=== PATIENT | female | born 1960 | race Caucasian/White ===

== ENCOUNTER → 2016-11-03 | Outpatient (CLI) | payer BC ==
--- NOTE | 2016-11-03 10:40 | REPMRS ---
Patient History The patient states she had a clinical breast exam in 10/2016. Patient is postmenopausal. No known family history of cancer. Digital Woman Screen Mammo: November 03, 2016 - Exam #: [id number] Bilateral CC and MLO view(s) were taken. Technologist: Alina Hudson, Technologist No prior studies available for comparison. FINDINGS: There are scattered fibroglandular densities. The patient states that there are no palpable abnormalities or other breast complaints. There is moderately dense fibroglandular tissue which is fairly symmetric. There is no dominant mass, areas of architectural distortion, or clustered microcalcification typical of malignancy. Benign calcifications are incidently identified. ASSESSMENT: BI-RADS/ACR category 2 mammogram. Benign finding(s). Recommendation Routine screening mammogram in 1 year (for women over age 40). This mammogram was interpreted with the aid of an FDA-approved computer-aided dectection system. A. Negative x-ray reports should not delay biopsy if a dominant or clinically suspicious mass is present. B. Not all cancers are identified by mammography. C. Adenosis and dense breast may obscure an underlying neoplasm. Electronically Signed By: Nicanor El M.D. 11/03/16 [id number]
== END ==
LOC: M WHC 09:23
PROVIDERS: ATTEND Nurse Practitioner Family
DX: Z12.31 Encounter for screening mammogram for malignant neoplasm of breast (principal)

== ENCOUNTER → 2016-11-03 | Outpatient (REF) | payer BC | LOC: M SFHCWAGY 11:59 | PROVIDERS: ATTEND Nurse Practitioner Family | DX: Z12.12 Encounter for screening for malignant neoplasm of rectum (principal); Z12.4 Encounter for screening for malignant neoplasm of cervix ==

== ENCOUNTER → 2017-07-20 | Outpatient (CLI) | payer BC | LOC: M ADAMS 15:12 | DX: M19.011 Primary osteoarthritis, right shoulder (principal); M19.012 Primary osteoarthritis, left shoulder; M85.88 Other specified disorders of bone density and structure, other site; M51.37 Other intervertebral disc degeneration, lumbosacral region; M54.41 Lumbago with sciatica, right side | CPT/HCPCS: 72100 ==

== ENCOUNTER → 2017-07-21 | Outpatient (REF) | payer BC ==
[2017-07-21 12:56] LABS: BASO % 0.3 % (0.0-1.0); EOS # 0.2 10^3/uL (0.0-0.50); HEMATOCRIT 39.5 % (36.0-47.0); HEMOGLOBIN 12.8 g/dl (12.0-15.5); IMMATURE GRANULOCYTE % 0.3 % (0-3.0); LYMPH # 1.6 10^3/uL (1.5-4.5); LYMPH % 21.2 % (24.0-44.0); MEAN CORPUSCULAR HEMOGLOBIN 30.2 pg (27.0-33.0); MEAN CORPUSCULAR HGB CONC 32.4 g/dl (32.0-36.5); MEAN CORPUSCULAR VOLUME 93.2 fl (80.0-96.0); MONO # 0.6 10^3/uL (0.0-0.8); MONO % 7.3 % (0.0-5.0); NEUTROPHILS # 5.2 10^3/uL (1.8-7.7); NEUTROPHILS % 68.9 % (36.0-66.0); PLATELET COUNT, AUTOMATED 292 10^3/uL (150-450); RED BLOOD COUNT 4.24 10^6/uL (4.00-5.40); RED CELL DISTRIBUTION WIDTH 12.2 % (11.5-14.5); WHITE BLOOD COUNT 7.6 10^3/uL (4.0-10.0)
[2017-07-21 13:21] LABS: TOTAL 25(OH) VITAMIN D 25.3 NG/ML (30.0-100.0)
[2017-07-21 13:34] LABS: ALBUMIN 3.9 GM/DL (3.2-5.2); ALBUMIN/GLOBULIN RATIO 1.05 (1.00-1.93); ALKALINE PHOSPHATASE 98 U/L (45-117); ALT/SGPT 12 U/L (12-78); ANION GAP 9 MEQ/L (8-16); AST/SGOT 15 U/L (7-37); BILIRUBIN,TOTAL 0.4 MG/DL (0.2-1.0); BLOOD UREA NITROGEN 11 MG/DL (7-18); CALCIUM LEVEL 9.1 MG/DL (8.5-10.1); CARBON DIOXIDE LEVEL 25 MEQ/L (21-32); CHLORIDE LEVEL 108 MEQ/L (98-107); CHOLESTEROL LEVEL 132 MG/DL (<200); CREATININE FOR GFR 0.57 MG/DL (0.55-1.30); FREE T4 1.17 NG/DL (0.76-1.46); GLOMERULAR FILTRATION RATE > 60.0 (>51); GLUCOSE, FASTING 75 MG/DL (70-100); HDL CHOLESTEROL 53 MG/DL (>40); LDL CHOLESTEROL 57.2 MG/DL (<100); NON-HDL-C 79 MG/DL; POTASSIUM SERUM 4.3 MEQ/L (3.5-5.1); RHEUMATOID FACTOR QUANT < 10.0 IU/ML (<15.0); SODIUM LEVEL 142 MEQ/L (136-145); TOTAL PROTEIN 7.6 GM/DL (6.4-8.2); TRIGLYCERIDES LEVEL 109 MG/DL (<150)
[2017-07-21 14:04] LABS: ERYTHROCYTE SEDIMENTATION RATE 22 mm/hr (0-30)
[2017-07-21 15:11] LABS: HIV 1&2 SCREEN CENTAUR NEGATIVE (NEGATIVE)
[2017-07-23 00:07] LABS: ANA (HEP2) Negative (.); Lyme Disease IgG/IgM Antibodie <0.91 ISR (0.00-0.90); Lyme Disease IgM Ab Quantitati <0.80 index (0.00-0.79)
== END ==
LOC: M SFHCADAM 08:06
DX: M25.512 Pain in left shoulder (principal); R03.0 Elevated blood-pressure reading, without diagnosis of hypertension; M54.42 Lumbago with sciatica, left side; M54.41 Lumbago with sciatica, right side; M25.511 Pain in right shoulder; Z11.4 Encounter for screening for human immunodeficiency virus [HIV]
CPT/HCPCS: 84443

== ENCOUNTER → 2017-11-04 | Outpatient (CLI) | payer BC | LOC: M WHC 09:42 | DX: Z12.31 Encounter for screening mammogram for malignant neoplasm of breast (principal); Z78.0 Asymptomatic menopausal state; M85.851 Other specified disorders of bone density and structure, right thigh; M85.852 Other specified disorders of bone density and structure, left thigh; M85.88 Other specified disorders of bone density and structure, other site | CPT/HCPCS: 77067 ==

== ENCOUNTER → 2017-11-04 | Outpatient (REF) | payer BC ==
[2017-11-06 14:16] LABS: HPV HYBRID CAPTURE II Negative (Negative)
== END ==
LOC: M SFHCWAGY 09:50
DX: Z12.4 Encounter for screening for malignant neoplasm of cervix (principal)
CPT/HCPCS: G0123

== ENCOUNTER 2017-11-05 07:30 | Day surgery (SDC) | payer BC ==
[2017-11-05] MEDS ORDERED: LIDOCAINE 2% INJ 100 MG/5 ML SDV (FOR ANES.) As Ordered (08:14)
[2017-11-05] MEDS ORDERED: PROPOFOL 200 MG/20 ML VIAL As Ordered (08:14)
[2017-11-05] MEDS: NS 1,000 ML IV (08:39)
== END 2017-11-05 09:48 | disposition home or self-care (01) ==
LOC: M OPP 07:30
DX: Z12.11 Encounter for screening for malignant neoplasm of colon (principal); D12.2 Benign neoplasm of ascending colon; K57.30 Diverticulosis of large intestine without perforation or abscess without bleeding; K64.8 Other hemorrhoids; M19.90 Unspecified osteoarthritis, unspecified site; M54.89 Other dorsalgia; M25.519 Pain in unspecified shoulder; F17.210 Nicotine dependence, cigarettes, uncomplicated; Z79.899 Other long term (current) drug therapy
CPT/HCPCS: 45385

== ENCOUNTER → 2018-06-10 | Outpatient (CLI) | payer BC ==
[~2018-06-10] MED LIST: CALC600T60 PO; MELO15TA28 PO; MULTCAP PO; VITA100066 PO; [UNRECOGNIZED DRUG - CODE] PO
--- NOTE | 2018-06-10 16:20 | REP ---
AP LATERAL RIGHT HIP, TWO VIEWS: HISTORY: Hip pain. There is no acute fracture or dislocation. The joint space is normal in appearance. IMPRESSION: There is no acute fracture or dislocation. Electronically Signed by Roberto Blunt MD 06/10/2018 04:26 P
== END ==
LOC: M ADAMS 13:40
PROVIDERS: ATTEND Physician Assistant Medical
DX: M25.551 Pain in right hip (principal)

== ENCOUNTER → 2018-09-28 | Outpatient (REF) | payer BC ==
[2018-09-28 12:21] LABS: BASO % 0.4 % (0.0-1.0); EOS # 0.2 10^3/uL (0.0-0.50); EOS % 2.2 % (0.0-3.0); HEMATOCRIT 38.2 % (36.0-47.0); HEMOGLOBIN 13.2 g/dl (12.0-15.5); LYMPH # 1.6 10^3/uL (1.5-4.5); LYMPH % 21.6 % (24.0-44.0); MEAN CORPUSCULAR HEMOGLOBIN 32.4 pg (27.0-33.0); MEAN CORPUSCULAR HGB CONC 34.6 g/dl (32.0-36.5); MEAN CORPUSCULAR VOLUME 93.9 fl (80.0-96.0); MONO # 0.6 10^3/uL (0.0-0.8); MONO % 8.2 % (0.0-5.0); NEUTROPHILS # 4.9 10^3/uL (1.8-7.7); NEUTROPHILS % 67.2 % (36.0-66.0); PLATELET COUNT, AUTOMATED 298 10^3/uL (150-450); RED BLOOD COUNT 4.07 10^6/uL (4.00-5.40); WHITE BLOOD COUNT 7.3 10^3/uL (4.0-10.0)
[2018-09-28 12:36] LABS: ALBUMIN 3.9 GM/DL (3.2-5.2); ALT/SGPT 15 U/L (12-78); BILIRUBIN,TOTAL 0.4 MG/DL (0.2-1.0); BLOOD UREA NITROGEN 25 MG/DL (7-18); CALCIUM LEVEL 10.1 MG/DL (8.5-10.1); CARBON DIOXIDE LEVEL 30 MEQ/L (21-32); CHLORIDE LEVEL 100 MEQ/L (98-107); CHOLESTEROL LEVEL 138 MG/DL (<200); CHOLESTEROL RISK RATIO 2.464 (<5); CREATININE FOR GFR 0.85 MG/DL (0.55-1.30); GLOMERULAR FILTRATION RATE > 60.0 (>51); GLUCOSE, FASTING 78 MG/DL (70-100); HDL CHOLESTEROL 56 MG/DL (>40); LDL CHOLESTEROL 57 MG/DL (<100); NON-HDL-C 82 MG/DL; POTASSIUM SERUM 3.7 MEQ/L (3.5-5.1); SODIUM LEVEL 137 MEQ/L (136-145); TOTAL PROTEIN 7.2 GM/DL (6.4-8.2); TRIGLYCERIDES LEVEL 123 MG/DL (<150)
== END ==
LOC: M SFHCADAM 08:18
PROVIDERS: ATTEND Physician Assistant Medical
DX: I10 Essential (primary) hypertension (principal); F17.210 Nicotine dependence, cigarettes, uncomplicated

== ENCOUNTER → 2018-12-07 | Outpatient (CLI) | payer BC ==
--- NOTE | 2018-12-07 13:18 | REPMRS ---
Patient History The patient states she had a clinical breast exam in 11/2018. Patient is postmenopausal. No known family history of cancer. No Hormone Replacement Therapy 3D TOMOSYNTHESIS WAS PERFORMED. The [facility] lifetime risk for breast cancer is 5.9%. Digital Woman Screen Mammo: December 07, 2018 - Exam #: [id number] Bilateral CC and MLO view(s) were taken. Technologist: Alina Hudson, Technologist Prior study comparison: November 04, 2017, bilateral digital woman screen mammo performed at [facility]. November 03, 2016, digital woman screen mammo performed at [facility]. FINDINGS: There are scattered fibroglandular densities. There has been no change in the appearance of the mammogram from the prior studies. There is a mild amount of residual fibroglandular tissue which is fairly symmetric. There is no interval development of dominant mass, architectural distortion, or clustered microcalcification suggestive of malignancy. Assessment: BI-RADS/ACR category 1 mammogram. Negative Mammogram. Recommendation Routine screening mammogram in 1 year (for women over age 40). This mammogram was interpreted with the aid of an FDA-approved computer-aided dectection system. Electronically Signed By: Nicanor Camacho MD 12/07/18 [id number]
== END ==
LOC: M WHC 09:56
PROVIDERS: ATTEND Physician Assistant Medical
DX: Z12.31 Encounter for screening mammogram for malignant neoplasm of breast (principal); Z78.0 Asymptomatic menopausal state

== ENCOUNTER → 2019-01-02 | Outpatient (REF) | payer BC ==
[2019-01-02 16:29] LABS: BASO % 0.3 % (0.0-1.0); EOS # 0.1 10^3/uL (0.0-0.5); EOS % 0.6 % (0.0-3.0); HEMATOCRIT 36.8 % (36.0-47.0); HEMOGLOBIN 13.1 g/dl (12.0-15.5); LYMPH # 1.2 10^3/uL (1.5-5.0); LYMPH % 11.9 % (24.0-44.0); MEAN CORPUSCULAR HEMOGLOBIN 32.7 pg (27.0-33.0); MEAN CORPUSCULAR HGB CONC 35.6 g/dl (32.0-36.5); MEAN CORPUSCULAR VOLUME 91.8 fl (80.0-96.0); MONO # 0.8 10^3/uL (0.0-0.8); MONO % 8.2 % (0.0-5.0); NEUTROPHILS # 7.7 10^3/uL (1.5-8.5); NEUTROPHILS % 78.5 % (36.0-66.0); PLATELET COUNT, AUTOMATED 354 10^3/uL (150-450); RED BLOOD COUNT 4.01 10^6/uL (4.00-5.40); WHITE BLOOD COUNT 9.8 10^3/uL (4.0-10.0)
== END ==
LOC: M SFHCPLAZ 14:06
PROVIDERS: ATTEND Nurse Practitioner Family
DX: K11.20 Sialoadenitis, unspecified (principal)

== ENCOUNTER → 2019-01-04 | Outpatient (CLI) | payer BC ==
--- NOTE | 2019-01-04 07:21 | REP ---
Clinical: Right-sided Sialadenitis. Technique: Real time worley scale and color evaluation using linear high frequency transducer. Findings: Ultrasound examination overlying the right parotid gland and surrounding subcutaneous soft tissues demonstrates normal echotexture and vascularity to the parotid gland without hyperemia and without obvious ductal dilatation or obstruction. Multiple right-sided lymph nodes are identified measuring up to 20 x 7 x 15 mm. Impression: 1. Normal right parotid gland. 2. Few mildly prominent right-sided lymph nodes may be related to underlying infectious process. Electronically Signed by Hunter Carreno MD 01/04/2019 07:13 A
== END ==
LOC: M RAD 06:16
PROVIDERS: ATTEND Nurse Practitioner Family
DX: K11.20 Sialoadenitis, unspecified (principal)

== ENCOUNTER → 2019-09-21 | Outpatient (REF) | payer BC ==
[2019-09-21 12:44] LABS: BASO % 0.3 % (0.0-1.0); EOS # 0.2 10^3/uL (0.0-0.5); EOS % 1.3 % (0.0-3.0); HEMATOCRIT 39.1 % (36.0-47.0); HEMOGLOBIN 13.6 g/dl (12.0-15.5); LYMPH # 1.8 10^3/uL (1.5-5.0); LYMPH % 15.9 % (24.0-44.0); MEAN CORPUSCULAR HEMOGLOBIN 31.6 pg (27.0-33.0); MEAN CORPUSCULAR HGB CONC 34.8 g/dl (32.0-36.5); MEAN CORPUSCULAR VOLUME 90.7 fl (80.0-96.0); MONO # 0.9 10^3/uL (0.0-0.8); MONO % 7.6 % (0.0-5.0); NEUTROPHILS # 8.5 10^3/uL (1.5-8.5); NEUTROPHILS % 74.2 % (36.0-66.0); PLATELET COUNT, AUTOMATED 388 10^3/uL (150-450); RED BLOOD COUNT 4.31 10^6/uL (4.00-5.40); WHITE BLOOD COUNT 11.4 10^3/uL (4.0-10.0)
[2019-09-21 13:17] LABS: ALBUMIN 4.4 GM/DL (3.2-5.2); ALT/SGPT 16 U/L (12-78); BILIRUBIN,TOTAL 0.4 MG/DL (0.2-1.0); BLOOD UREA NITROGEN 12 MG/DL (7-18); CALCIUM LEVEL 9.9 MG/DL (8.5-10.1); CARBON DIOXIDE LEVEL 28 MEQ/L (21-32); CHLORIDE LEVEL 85 MEQ/L (98-107); CHOLESTEROL LEVEL 166 MG/DL (<200); CHOLESTEROL RISK RATIO 2.677 (<5); CREATININE FOR GFR 0.86 MG/DL (0.55-1.30); GLOMERULAR FILTRATION RATE > 60.0 (>51); GLUCOSE, FASTING 87 MG/DL (70-100); HDL CHOLESTEROL 62 MG/DL (>40); LDL CHOLESTEROL 76 MG/DL (<100); NON-HDL-C 104 MG/DL; POTASSIUM SERUM 4.1 MEQ/L (3.5-5.1); SODIUM LEVEL 121 MEQ/L (136-145); TOTAL PROTEIN 8.2 GM/DL (6.4-8.2); TRIGLYCERIDES LEVEL 140 MG/DL (<150)
== END ==
LOC: M SFHCADAM 10:17
PROVIDERS: ATTEND Physician Assistant Medical
DX: Z00.00 Encounter for general adult medical examination without abnormal findings (principal); F17.210 Nicotine dependence, cigarettes, uncomplicated; I10 Essential (primary) hypertension

== ENCOUNTER → 2019-10-09 | Outpatient (REF) | payer BC ==
[2019-10-09 13:21] LABS: BLOOD UREA NITROGEN 13 MG/DL (7-18); CALCIUM LEVEL 9.4 MG/DL (8.5-10.1); CARBON DIOXIDE LEVEL 29 MEQ/L (21-32); CHLORIDE LEVEL 91 MEQ/L (98-107); CREATININE FOR GFR 0.99 MG/DL (0.55-1.30); GLOMERULAR FILTRATION RATE > 60.0 (>51); GLUCOSE, FASTING 98 MG/DL (70-100); POTASSIUM SERUM 3.8 MEQ/L (3.5-5.1); SODIUM LEVEL 126 MEQ/L (136-145)
== END ==
LOC: M SFHCADAM 09:30
PROVIDERS: ATTEND Physician Assistant Medical
DX: E87.1 Hypo-osmolality and hyponatremia (principal)

== ENCOUNTER → 2019-12-11 | Outpatient (CLI) | payer BC ==
--- NOTE | 2019-12-11 12:14 | REPMRS ---
Patient History The patient states she had a clinical breast exam in November 2019.No known family history of cancer. No Hormone Replacement Therapy 3D TOMOSYNTHESIS WAS PERFORMED. The [facility] lifetime risk for breast cancer is 5.8%. ADOLFO URBINA B. Digital Woman Screen Mammo: December 11, 2019 - Exam #: [id number] Bilateral CC and MLO view(s) were taken. Technologist: Audrey Miranda, Technologist Prior study comparison: December 07, 2018, bilateral digital woman screen mammo performed at [facility]. November 04, 2017, bilateral digital woman screen mammo performed at [facility]. FINDINGS: There are scattered fibroglandular densities. There has been no change in the appearance of the mammogram from the prior studies. There is a mild amount of residual fibroglandular tissue which is fairly symmetric. There is no interval development of dominant mass, architectural distortion, or clustered microcalcification suggestive of malignancy. Assessment: BI-RADS/ACR category 1 mammogram. Negative Mammogram. Recommendation Routine screening mammogram in 1 year (for women over age 40). This mammogram was interpreted with the aid of an FDA-approved computer-aided dectection system. Electronically Signed By: Nicanor Camacho MD 12/11/19 [id number]
== END ==
LOC: M WHC 10:50
PROVIDERS: ATTEND Nurse Practitioner Family
DX: Z12.31 Encounter for screening mammogram for malignant neoplasm of breast (principal)

== ENCOUNTER → 2020-05-24 | Outpatient (CLI) | payer BC ==
[~2020-05-24] MED LIST changes: +ACET-683 PO; +E-Z-GAS II EFFERVESCENT PACKET (SODIUM BICARB./CITRIC ACID/SIMETHICONE) As Ordered ONE; +E-Z-HD 98% w/w 340GM SUSP BTL As Ordered ONE; +E-Z-PAQUE 96% w/w SUSP 176GM BTL As Ordered ONE; +LISI-898 PO; +LORA-753 PO; +PANT40TA29 PO
--- NOTE | 2020-05-24 17:01 | REP ---
INDICATION: DYSPHAGIA W/ CHEST PAIN. COMPARISON: None TECHNIQUE: This procedure was performed by Halie Beal [facility], under the direct supervision of Dr. Camacho. Images were reviewed with Dr. Camacho prior to dictation. Liquid barium and gas producing crystals were given in the erect position, as well as liquid barium in the prone oblique position in order to perform a double contrast upper GI examination. FINDINGS: The felt hanger film shows no organomegaly or pathological masses. The intestinal gas pattern is unremarkable. The oral and pharyngeal stages of deglutition were unremarkable. There is a irregular, partially obstructing mass in the mid esophagus. This mass is causing [id number] narrowing of the lumen and extends for approximately 6 cm in length.. There is evidence of a hiatal hernia. There was no gastroesophageal reflux noted . The stomach del valle are normally outlined. The rugal folds are smooth and regular. There is no gastritis, neoplasm, or ulcerative disease. The duodenal dle valle are normally outlined. The mucosal folds are smooth and regular. There is no duodenitis, peptic ulcer disease or neoplasm. The visualized portion of the proximal small bowel appears normal in course and caliber. IMPRESSION: 1. Irregular, partially obstructing mass in the mid esophagus causing [id number]-hg-[id number] narrowing of the lumen. 2. Small hiatal hernia. 1.1 minutes of fluoroscopy time was utilized for this procedure. Some fluoroscopic images are performed with last image hold technology. These images require no additional radiation. <Electronically signed by Halie Beal > 05/24/20 [id number] <Electronically signed by Nicanor Camacho > 05/24/20 1551
== END ==
LOC: M RAD 07:23
PROVIDERS: ATTEND Physician Assistant Medical
DX: R07.89 Other chest pain (principal)

== ENCOUNTER → 2020-05-26 | Outpatient (CLI) | payer BC ==
[~2020-05-26] MED LIST changes: -E-Z-GAS II EFFERVESCENT PACKET (SODIUM BICARB./CITRIC ACID/SIMETHICONE) As Ordered ONE; -E-Z-HD 98% w/w 340GM SUSP BTL As Ordered ONE; -E-Z-PAQUE 96% w/w SUSP 176GM BTL As Ordered ONE
== END ==
LOC: M LABSMTC 09:53
PROVIDERS: ATTEND Anesthesiology
DX: Z01.818 Encounter for other preprocedural examination (principal); Z20.822 Contact with and (suspected) exposure to COVID-19

== ENCOUNTER 2020-05-31 12:55 | Day surgery (SDC) | payer BC ==
[~2020-05-31] VITALS: Ht 165.1 cm; Wt 62.6 kg
[~2020-05-31 12:55] MED LIST changes: +LIDOCAINE 2% 100MG/5ML SDV (FOR ANES.) As Ordered ONE; +NS 1,000 ML IV ONE; +fentaNYL 100 MCG/2 ML INJECTION (J3010) As Ordered ONE; +propofoL 200 MG/20 ML VIAL As Ordered ONE
[2020-05-31] MEDS ORDERED: propofoL 200 MG/20 ML VIAL As Ordered ONE (15:07)
--- NOTE | 2020-05-31 15:29 | ROOR ---
Patient Name: Ashley Green Procedure Date: 05/31/2020 2:44 PM Date of : 1960 Age: 60 Room: [facility] Gender: Female Note Status: Finalized Procedure: Upper GI endoscopy Indications: Dysphagia, Abnormal UGI series Providers: Leonardo ESTRADA MD Referring MD: CRISS Seo Requesting Provider: Medicines: Monitored Anesthesia Care Complications: No immediate complications. Procedure: Pre-Anesthesia Assessment: - The heart rate, respiratory rate, oxygen saturations, blood pressure, adequacy of pulmonary ventilation, and response to care were monitored throughout the procedure. The Endoscope was introduced through the mouth, and advanced to the second part of duodenum. The upper GI endoscopy was accomplished without difficulty. The patient tolerated the procedure well. Findings: A large, fungating and ulcerating mass with no bleeding was found in the mid esophagus, 27 to 33 cm from the incisors. The mass was partially obstructing and circumferential. Biopsies were taken with a cold forceps for histology. (Normal squamous mucosa is seen below the mass. The GE junction is normal at 38 cm from incisors). I was able to pass this lesion just barely with standard EGD scope. The entire examined stomach was normal. The examined duodenum was normal. Impression: - Partially obstructing, rule out malignancy, esophageal tumor was found in the mid esophagus. Biopsied. - Normal stomach. - Normal examined duodenum. Recommendation: - STOP/Do not restart alendronate/Fosamax and Meloxicam - Liquid diet/very soft diet. - Await CT chest/abdomen as ordered. - Await biopsies. - Further recommendations/plans will be made within next few days. Procedure Code(s): --- Professional --- 17576, Esophagogastroduodenoscopy, flexible, transoral; with biopsy, single or multiple Diagnosis Code(s): --- Professional --- R93.3, Abnormal findings on diagnostic imaging of other parts of digestive tract R13.10, Dysphagia, unspecified D49.0, Neoplasm of unspecified behavior of digestive system CPT copyright 2019 [employer]. All rights reserved. The codes documented in this report are preliminary and upon ocean import representative review may be revised to meet current compliance requirements. Leonardo Estrada MD Leonardo ESTRADA MD 05/31/2020 3:28:31 PM Electronically signed by Leonardo ESTRADA MD Number of Addenda: 0 Note Initiated On: 05/31/2020 2:44 PM Estimated Blood Loss: Estimated blood loss: none.
[2020-05-31 15:55] VITALS: BP 172/80
== END 2020-05-31 15:56 | disposition home or self-care (01) ==
LOC: M OPP 12:55
PROVIDERS: ATTEND Internal Medicine Gastroenterology
DX: C15.9 Malignant neoplasm of esophagus, unspecified (principal); R10.13 Epigastric pain; R93.3 Abnormal findings on diagnostic imaging of other parts of digestive tract; F17.210 Nicotine dependence, cigarettes, uncomplicated; Z79.899 Other long term (current) drug therapy
CPT/HCPCS: 43239; 88305; J3010

== ENCOUNTER → 2020-06-05 | Outpatient (CLI) | payer BC ==
[~2020-06-05] MED LIST changes: +GASTROGRAFIN SOLUTION 30ML (Q9963) As Ordered ONE; +ISOVUE-370 76% 100ML VIAL As Ordered ONE; -LIDOCAINE 2% 100MG/5ML SDV (FOR ANES.) As Ordered ONE; -NS 1,000 ML IV ONE; -fentaNYL 100 MCG/2 ML INJECTION (J3010) As Ordered ONE; -propofoL 200 MG/20 ML VIAL As Ordered ONE
--- NOTE | 2020-06-07 07:49 | REP ---
INDICATION: ABNORMAL WEIGHT LOSS COMPARISON: None TECHNIQUE: Axial contrast enhanced images from the thoracic inlet to the upper abdomen using 100 ml Isovue 370 intravenous contrast material followed by CT of the abdomen and pelvis. Coronal and sagittal reformations obtained. This CT examination was performed using the following dose reduction techniques: Automated exposure control, adjustment of mA and/or kv according to the patient's size, and use of iterative reconstruction technique. FINDINGS: There is significant irregular circumferential thickening of the mid esophagus measuring roughly 9 cm in craniocaudal length along with middle mediastinal adenopathy highly suspicious for esophageal carcinoma. Differential diagnosis may include a chronic/long-standing inflammatory process. The bilateral lung vaz are well aerated and essentially clear. Mild emphysematous changes with subtle bronchiectasis suggested and should be correlated clinically. No focal consolidation, nodule or mass. No effusion. No pneumothorax. Tracheobronchial tree is patent. Thoracic aorta, pulmonary vasculature, and heart/pericardium are essentially normal. IMPRESSION: 1. Very suspicious mid esophageal mass with small adjacent lymph nodes highly suspicious for esophageal carcinoma. Differential diagnosis may include a chronic/long-standing inflammatory process. Gastroenterology consultation and endoscopy required. 2. Lungs are essentially clear. <Electronically signed by Hunter Carreno > 06/07/20 [id number]
--- NOTE | 2020-06-07 07:58 | REP ---
INDICATION: ABNORMAL WEIGHT LOSS. COMPARISON: None TECHNIQUE: Axial contrast-enhanced images from the lung bases to the pubic symphysis using oral and 100 cc Isovue 370 intravenous contrast material. Coronal and sagittal reformations obtained. This CT examination was performed using the following dose reduction techniques: Automated exposure control, adjustment of mA and/or kv according to the patient's size, and the use of iterative reconstruction technique. FINDINGS: Liver, spleen, pancreas, gallbladder, bilateral adrenal glands and kidneys are normal. Small lymph nodes in the epigastric and gastrohepatic region cannot be excluded. The enteric system including stomach, small, and large bowel appears normal. No evidence for obstruction or acute inflammatory process. Normal terminal ileum and appendix are identified in the right lower quadrant. Colonic and sigmoid diverticulosis noted without acute diverticulitis. Pelvis demonstrates normal bladder and age-appropriate prostate/seminal vesicles. No ascites. No free air. Abdominal aorta and vasculature appear normal. Musculoskeletal structures are intact and without acute osseous abnormality. IMPRESSION: Cannot exclude few small lymph nodes in the gastrohepatic and epigastric region. No further acute abdominopelvic pathology appreciated. Colonic diverticula without acute diverticulitis. <Electronically signed by Hunter Carreno > 06/07/20 [id number]
== END ==
LOC: M RAD 15:14
PROVIDERS: ATTEND Physician Assistant Medical
DX: R93.3 Abnormal findings on diagnostic imaging of other parts of digestive tract (principal); K57.30 Diverticulosis of large intestine without perforation or abscess without bleeding; R63.4 Abnormal weight loss; R07.9 Chest pain, unspecified
CPT/HCPCS: 71260; 74178; Q9963; Q9967

== ENCOUNTER → 2020-06-26 | Outpatient (CLI) | payer BC ==
[~2020-06-26] MED LIST changes: -GASTROGRAFIN SOLUTION 30ML (Q9963) As Ordered ONE; -ISOVUE-370 76% 100ML VIAL As Ordered ONE; +LIDOCAINE 1% MDV 20ML VIAL As Ordered ONE; +MIDAZOLAM INJ 2MG/2ML VIAL (J2250 PER 1MG) As Ordered ONE; +ONDA8TAB10 PO; +PROC10TA4 PO; +ceFAZolin 2 GM/D5W 50 ML IV BAG (J0690 PER 500MG) As Ordered ONE; +diphenhydrAMINE 50MG/ML VIAL (J1200) As Ordered ONE; +fentaNYL 100 MCG/2 ML INJECTION (J3010) As Ordered ONE
--- NOTE | 2020-06-26 13:54 | IRHP ---
[facility] IR Pre-Procedure H & P General Date of Service: Jun 26, 2020 Procedure: Same Day Surgery Interval History and Physical I have seen the patient and reviewed last H & P performed within 30 days. There is no significant interval change. History of Present Illness Chief Complaint The patient is a 60-year-old female admitted with a reason for visit of Esophageal Mass. PRE-PROCEDURE DIAGNOSIS: Esophageal cancer HEART: Normal rate. LUNGS: Normal breathing at rest. ASA Classification ASA Classification: II-Mild systemic disease Mallampati Score: II NPO: Yes Problems with prior sedation: No Obstructive Sleep Apnea: No Plan moderate sedation Allergies Coded Allergies: No Known Allergies (Unverified , 05/24/20) Home Medications Scheduled Acetaminophen (Acetaminophen), 1,000 MG PO BID, (Reported) Lisinopril (Lisinopril), 5 MG PO DAILY, (Reported) Meloxicam (Meloxicam), 15 MG PO 3XW, (Reported) Scheduled PRN Ondansetron HCl (Ondansetron HCl), 8 MG PO Q8H PRN for NAUSEA OR VOMITING Prochlorperazine Maleate (Prochlorperazine Maleate), 10 MG PO Q8H PRN for NAUSEA OR VOMITING VS, I&O, 24H, Fishbone Vital Signs/I&O Vital Signs Date Time Temp Pulse Resp B/P (MAP) Pulse Ox O2 Delivery O2 Flow Rate FiO2 06/26/20 13:41 97.1 80 16 100 Room Air SEA ALVAREZ MD Jun 26, 2020 13:53
[2020-06-26 15:57] VITALS: BP 138/89
--- NOTE | 2020-06-28 10:10 | IRPON ---
IR Postoperative Note Date Of Procedure: Jun 26, 2020 Time Of Procedure: 16:00 IR Postoperative Note IR Ultrasound and fluoroscopy guided port placement. IR Ultrasound of the neck. IR Moderate sedation. Clinical indication: Esophageal cancer. Physician: Dr. Melendez. Procedure: The patient was advised of the benefits, risks, and alternatives of the procedure and informed consent was obtained. A time-out was performed with verification of the patient's name, MRN, site of procedure and type of procedure to be performed. The patient was positioned in the supine position on the angiographic table. The site was prepped and draped in the usual sterile fashion. Moderate sedation was performed by the physician including the presence of an independent trained RN who assisted and monitored the patient's level of consciousness and physiologic status. Following the administration of fentanyl and Versed , the physician spent 45 minutes of continuous face to face time with the patient. Ultrasound of the neck reveals a patent and compressible right internal jugular vein. A rn emergency radiograph reveals no gross abnormality. The neck and anterior chest wall were anesthetized with lidocaine. The right internal jugular vein was accessed using a microintroducer needle under ultrasound guidance, via a lateral approach. An 018 wire was advanced into the superior vena cava, the needle was removed and a microsheath was placed. An Amplatz wire was then passed into the inferior vena cava. An incision at the internal jugular vein access site and anterior chest wall were made using a scalpel. An incision was made at the anterior chest wall. A small pocket was created using a combination of blunt and sharp dissection. A tunneling device was then used to pass the catheter from the pocket to the neck puncture site. An 8- Swedish Angio Imagekind Smart power port was then positioned in the pocket. The catheter was then measured and cut. The introducer sheath was exchanged for a peel-away sheath. The catheter was passed through the peel-away sheath into the internal jugular vein and the peel-away sheath was removed. The port tip was positioned at the cavoatrial junction. The port was then accessed with a Layne needle. The port flushes and aspirates well. The puncture site in the neck was closed. The chest wall incision was then closed with 2-0 Vicryl and 4-0 Monocryl. Glue and Steri- Strips were applied. A sterile dressing was then applied. The patient tolerated the procedure well and was returned to the PRU in stable condition. Estimated blood loss: <5 ml. Complications: None. Conclusion: 1. Successful placement of an 8-Swedish Angio dynamics Smart power port via the right internal jugular vein. The port is ready for immediate use. 2. Patient to follow up in IR clinic in 2 weeks. Thank you for this referral. SEA MELENDEZ MD Jun 28, 2020 10:10
== END ==
LOC: M IRPRO 13:22
PROVIDERS: ATTEND Specialist
DX: C15.9 Malignant neoplasm of esophagus, unspecified (principal); Z79.899 Other long term (current) drug therapy

== ENCOUNTER → 2020-06-28 | Outpatient (CLI) | payer BC ==
[~2020-06-28] MED LIST changes: -LIDOCAINE 1% MDV 20ML VIAL As Ordered ONE; -MIDAZOLAM INJ 2MG/2ML VIAL (J2250 PER 1MG) As Ordered ONE; -ceFAZolin 2 GM/D5W 50 ML IV BAG (J0690 PER 500MG) As Ordered ONE; -diphenhydrAMINE 50MG/ML VIAL (J1200) As Ordered ONE; -fentaNYL 100 MCG/2 ML INJECTION (J3010) As Ordered ONE
== END ==
LOC: M ONCR 09:54
PROVIDERS: ATTEND Radiology Radiation Oncology
DX: C15.9 Malignant neoplasm of esophagus, unspecified (principal)

== ENCOUNTER → 2020-07-16 | Outpatient (POV) | payer BC ==
[~2020-07-16] VITALS: Ht 165.1 cm; Wt 62.7 kg
[2020-07-16 09:40] VITALS: BP 130/88
--- NOTE | 2020-07-17 12:57 | IRPN ---
[facility] IR Progress Note IR Progress Note DATE: Jul 16, 2020 FOLLOW-UP: Status post port placement. Patient denies pain, swelling or discharge at the site. Patient denies fevers or chills. ON EXAMINATION: Port site appears to be healing well. No redness, fluctuance or discharge. Steri-Strips are still in place. IMPRESSION: Doing well status post port placement. Steri-Strips will fall off by themselves. No further follow-up scheduled unless initiated by patient and/or referring provider. Thank you for this referral Allergies Coded Allergies: No Known Allergies (Unverified , 05/24/20) VS,Fishbone, I+O VS, Fishbone, I+O Vital Signs Date Time Temp Pulse Resp B/P (MAP) Pulse Ox O2 Delivery O2 Flow Rate FiO2 07/16/20 09:40 98.0 76 20 130/88 (102) 98 Room Air SEA ALVAREZ MD Jul 17, 2020 12:57
== END ==
LOC: M IRPOV 09:29
PROVIDERS: ATTEND Radiology Diagnostic Radiology
DX: Z45.2 Encounter for adjustment and management of vascular access device (principal)

== ENCOUNTER → 2020-07-16 | Outpatient (CLI) | payer BC ==
--- NOTE | 2020-07-16 17:17 | REP ---
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 COMPARISON: Comparison CT study chest abdomen pelvis 05 June 2020.. TECHNIQUE: Sixty-one minutes following the intravenous injection of a 16.75 mCi dose of F-18 FDG, three-dimensional PET scintigraphy is acquired from the skull base to the proximal thighs. Triplanar noncontrast CT scanning is acquired through the same anatomic range for attenuation correction, and image registration with scan parameters optimized to minimize radiation exposure to the patient. PET scintigraphy and CT datasets were fused and displayed on a workstation with multiplanar and projection display capability. FINDINGS: The known malignant large esophageal mass is markedly hypermetabolic. Maximum standard uptake value in this elongate lesion is 30.70. There is a small hypermetabolic lymph node along the left lateral margin of the lesion in the aortic or pulmonary window region of the mediastinum. 6.65. There are 2 adjacent enlarged left supraclavicular lymph nodes which are quite hypermetabolic as well. Maximum standard uptake value in these is 9.14. These measure 2.5 and 2.0 cm in greatest diameter respectively. There is hypermetabolic celiac axis lymph node uptake in the upper abdomen with lymph node activity ranging up to 8.98 in 1 of the 3-4 upper abdominal lymph nodes. The largest of these is 1.5 cm. There is no abnormal hypermetabolic uptake in the liver. No other abnormal abdominal or pelvic hypermetabolic uptake focus is seen. No abnormal pulmonary parenchymal uptake is seen. IMPRESSION: The known elongate mid esophageal malignancy is markedly hypermetabolic. There is metastatic adenopathy evident in the upper abdomen and in the left supraclavicular region. <Electronically signed by Colin Dunn > 07/16/20 [id number]
== END ==
LOC: M PLARAD 13:52
PROVIDERS: ATTEND General Practice
DX: C15.4 Malignant neoplasm of middle third of esophagus (principal)
CPT/HCPCS: 78815; A9552

== ENCOUNTER 2020-07-18 10:53 | Outpatient (RCR) | payer BC | END 2020-07-19 | LOC: M ONCR 10:53 | PROVIDERS: ATTEND General Practice | DX: C15.9 Malignant neoplasm of esophagus, unspecified (principal) ==

== ENCOUNTER → 2020-07-25 | Outpatient (CLI) | payer BC ==
[2020-07-25 14:59] LABS: BASO % 0.3 % (0.0-1.0); EOS # 0.2 10^3/uL (0.0-0.5); EOS % 1.6 % (0.0-3.0); HEMOGLOBIN 10.5 g/dl (12.0-15.5); LYMPH # 1.7 10^3/uL (1.5-5.0); MEAN CORPUSCULAR HEMOGLOBIN 28.5 pg (27.0-33.0); MEAN CORPUSCULAR HGB CONC 31.8 g/dl (32.0-36.5); MEAN CORPUSCULAR VOLUME 89.4 fl (80.0-96.0); MONO # 0.8 10^3/uL (0.0-0.8); MONO % 6.4 % (2.0-8.0); NEUTROPHILS # 9.2 10^3/uL (1.5-8.5); NEUTROPHILS % 77.2 % (36.0-66.0); PLATELET COUNT, AUTOMATED 390 10^3/uL (150-450); RED BLOOD COUNT 3.69 10^6/uL (4.00-5.40)
[2020-07-25 15:10] LABS: INR 0.93; PROTHROMBIN TIME 12.7 SECONDS (12.5-14.3)
[2020-07-25 15:33] LABS: ALBUMIN 3.7 GM/DL (3.2-5.2); BILIRUBIN,TOTAL 0.2 MG/DL (0.2-1.0); CALCIUM LEVEL 9.6 MG/DL (8.5-10.1); CREATININE FOR GFR 1.15 MG/DL (0.55-1.30); GLOMERULAR FILTRATION RATE 51.6 (>51); POTASSIUM SERUM 4.4 MEQ/L (3.5-5.1); TOTAL PROTEIN 7.5 GM/DL (6.4-8.2)
== END ==
LOC: M ONCR 13:59
PROVIDERS: ATTEND General Practice
DX: C15.9 Malignant neoplasm of esophagus, unspecified (principal)

== ENCOUNTER → 2020-08-06 | Outpatient (POV) | payer BC ==
[~2020-08-06] VITALS: Ht 165.1 cm; Wt 60.9 kg
[2020-08-06 14:41] VITALS: BP 136/80
--- NOTE | 2020-08-07 13:08 | IRCOV ---
[facility] IR Consult Office Visit IR Consult Office Visit DATE: August 06, 2020 REASON FOR CONSULTATION/CHIEF COMPLAINT: Head and neck cancer. Undergoing radiation and chemotherapy. Needs G-tube. HISTORY OF PRESENT ILLNESS: 60-year-old female with esophageal cancer, recently started chemo and radiation. She's had 5 cycles of radiation so far. She denies any present dysphagia or reflux. She is eating solids and liquids at present. She does get mouth dryness but is able to eat. She reports no surgery is planned for the esophageal cancer. Radiation is planned until August 2020. Patient denies any prior peptic ulcer disease. Patient denies any GERD or prior gastritis, gastric surgery and or hematemesis or melena. Patient takes meloxicam for shoulder issues. ALLERGIES: Please see below. HOME MEDICATIONS: Please see below. PAST MEDICAL HISTORY: COPD Esophageal cancer Hypertension Rotator cuff issues PAST SURGICAL HISTORY: Tubal ligation FAMILY HISTORY: Noncontributory. SOCIAL HISTORY: Nonsmoker. Denies alcohol or drugs. REVIEW OF SYSTEMS: Otherwise negative. PHYSICAL EXAMINATION: VITAL SIGNS: Please see below. GENERAL APPEARANCE: Appears well. Comfortable at rest. HEENT: No scleral icterus. RESPIRATORY: Normal breathing at rest. CARDIOVASCULAR: Normal rate. ABDOMEN: Non-distended. Soft nontender. EXTREMITIES: No edema. NEUROLOGICAL: Alert and oriented. PSYCHIATRIC: Appropriate to circumstance. LABORATORY DATA: 08/05/2020 hemoglobin 11.2 hematocrit 34.5 WBC 11.4 platelets 364 sodium 131 potassium 4.7 BUN 14 creatinine 0.78 GFR greater than 60 INR on 07/25/2020 0.93 IMAGING: I personally reviewed the PET/CT performed 07/16/2020. Stomach located below the diaphragm. ASSESSMENT/PLAN: 60-year-old female with esophageal cancer with planned chemoradiation therapy, presents for gastrostomy tube placement. We discussed the risks and benefits of the procedure and patient is willing to proceed. We will schedule patient for gastrostomy placement. I spent 30 minutes reviewing patient's records, imaging and in consultation with the patient. Thank you for this referral. Cc Dr. Serrato Allergies Coded Allergies: No Known Allergies (Unverified , 05/24/20) Home Medications Scheduled Acetaminophen (Acetaminophen), 1,000 MG PO BID, (Reported) Lisinopril (Lisinopril), 5 MG PO DAILY, (Reported) Meloxicam (Meloxicam), 15 MG PO 3XW, (Reported) Scheduled PRN Ondansetron HCl (Ondansetron HCl), 8 MG PO Q8H PRN for NAUSEA OR VOMITING Prochlorperazine Maleate (Prochlorperazine Maleate), 10 MG PO Q8H PRN for NAUSEA OR VOMITING VS, I&O, 24H, Fishbone Vital Signs/I&O Vital Signs Date Time Temp Pulse Resp B/P (MAP) Pulse Ox O2 Delivery O2 Flow Rate FiO2 08/06/20 14:41 98.7 79 20 136/80 (98) 98 Room Air SEA ALVAREZ MD August 07, 2020 13:08
== END ==
LOC: M IRPOV 14:26
PROVIDERS: ATTEND Radiology Diagnostic Radiology
DX: C15.9 Malignant neoplasm of esophagus, unspecified (principal); I10 Essential (primary) hypertension; J44.9 Chronic obstructive pulmonary disease, unspecified; Z98.51 Tubal ligation status

== ENCOUNTER → 2020-08-14 | Outpatient (CLI) | payer BC ==
[~2020-08-14] MED LIST changes: +ACETAMINOPHEN 325 MG TAB As Ordered ONE; +ACETAMINOPHEN TAB 650MG DOSE (2X325MG) PO ONE; +GLUCAGON INJ 1MG VIAL As Ordered ONE; +ISOVUE-300 61% 50ML VIAL As Ordered ONE; +LIDOCAINE 1% MDV 20ML VIAL As Ordered ONE; +LIDOCAINE 2% JELLY 5ML TUBE As Ordered ONE; +MIDAZOLAM INJ 2MG/2ML VIAL (J2250 PER 1MG) As Ordered ONE; +OXYC1SOL3 PO; +PERCOCET 5MG/325MG TAB PO PRN; +ceFAZolin 2 GM/D5W 50 ML IV BAG (J0690 PER 500MG) As Ordered ONE; +diphenhydrAMINE 50MG/ML VIAL (J1200) As Ordered ONE; +fentaNYL 100 MCG/2 ML INJECTION (J3010) As Ordered ONE
--- NOTE | 2020-08-14 09:57 | IRHP ---
[facility] IR Pre-Procedure H & P General Date of Service: August 14, 2020 Procedure: Same Day Surgery Interval History and Physical I have seen the patient and reviewed last H & P performed within 30 days. There is no significant interval change. History of Present Illness Chief Complaint The patient is a 60-year-old female admitted with a reason for visit of Esophageal Cancer. PRE-PROCEDURE DIAGNOSIS:esophageal cancer HEART: normal rate. LUNGS: normal breathing at rest. ASA Classification ASA Classification: II-Mild systemic disease Mallampati Score: II NPO: Yes Problems with prior sedation: No Obstructive Sleep Apnea: No Plan moderate sedation Allergies Coded Allergies: No Known Allergies (Unverified , 05/24/20) Home Medications Scheduled Acetaminophen (Acetaminophen), 1,000 MG PO BID, (Reported) Lisinopril (Lisinopril), 5 MG PO DAILY, (Reported) Meloxicam (Meloxicam), 15 MG PO 3XW, (Reported) Scheduled PRN Ondansetron HCl (Ondansetron HCl), 8 MG PO Q8H PRN for NAUSEA OR VOMITING Prochlorperazine Maleate (Prochlorperazine Maleate), 10 MG PO Q8H PRN for NAUSEA OR VOMITING SEA ALVAREZ MD August 14, 2020 09:56
[2020-08-14 12:55] VITALS: BP 134/84
--- NOTE | 2020-08-14 13:37 | IRPON ---
IR Postoperative Note Date Of Procedure: August 14, 2020 Time Of Procedure: 13:34 IR Postoperative Note IR Gastrostomy catheter placement with fluoroscopic guidance. IR Moderate sedation. Clinical Information:Esophageal cancer. Difficulty swallowing. Undergoing radiation therapy. Needs gastrostomy catheter. Physician: Dr. Melendez. Procedure: The patient was advised of the benefits, risks, and alternatives of the procedure and informed consent was obtained. A time out was performed with verification of the patient's name, MRN, site of procedure, and type of procedure to be performed. The patient was positioned in the supine position on the angiographic table. The site was prepped and draped in the usual sterile fashion. Moderate sedation was performed by the physician including the presence of an independent trained RN, who assisted in monitoring the patient's level of consciousness and physiological status. Following the administration of fentanyl and Versed the physician spent 45 minutes of continuous [id number] time with the patient. A aircraft cabin cleaner radiograph reveals no gross abnormality. A 5 [place] glide cath in conjunction with a Glidewire, was inserted through the nostril, under fluoroscopy guidance, down the esophagus into the stomach. The wire was removed. One mg of glucagon was administered intravenously. The stomach was insufflated and distended with air through the nasogastric tube. The soft tissues overlying the anticipated puncture sites were anesthetized with lidocaine. A gastropexy needle was advanced into the stomach and positioning was confirmed with contrast injection. The gastropexy suture was deployed and secured in the usual fashio n. A total of 3 gastropexy sutures were deployed. An 18 gauge needle was advanced into the body of the stomach. Contrast was injected documenting intra- gastric position. An Amplatz wire was advanced into the stomach. After serial dilation, a peel-away sheath was advanced over the wire, under fluoroscopy guidance, into the stomach. An 18 F EBONIE Gastrostomy catheter was then advanced over the wire, through the peel-away sheath into the stomach and the peel-away sheath was removed. The balloon was insufflated and the catheter retracted back to the the anterior stomach wall. The bumper on the catheter was positioned and secured to sandwich the anterior stomach wall. Contrast was injected to confirm catheter position. The catheter was then placed to gravity drainage. The NG tube was removed The patient tolerated the procedure well and was returned to the PRU in stable condition. EBL:Less than 5 mL. Complications:None. Conclusion: 1. Successful placement of an 18 [place] EBONIE gastrostomy catheter. 2. The catheter should remain to gravity drainage for 24 hours after which feedings may begin and advanced as tolerated. The gastropexy sutures should dissolve within 6 weeks and the buttons will fall off. 3. Patient to follow up in IR clinic in 2 weeks. Thank you for this referral. Cc SEA Ward MD August 14, 2020 13:37
== END ==
LOC: M IRPRO 09:18
PROVIDERS: ATTEND Radiology Diagnostic Radiology
DX: C15.9 Malignant neoplasm of esophagus, unspecified (principal); Z79.899 Other long term (current) drug therapy
CPT/HCPCS: 49450; 99152; 99153; C1729; C1769; C1887; C1894; J0690; J1200; J1610; J2250; J3010; Q9967

== ENCOUNTER 2020-08-16 11:28 | Outpatient (RCR) | payer BC ==
--- NOTE | 2020-08-15 12:12 | RADENCPD ---
Date/Time of Encounter Date of Encounter: August 15, 2020 Time of Encounter: 12:09 Encounter Saw Ashley today s/p PEG tube placement. Her VS are WNL. She is having some discomfort in the insertion site as well as in the chest with swallowing. I discussed referral to [facility] for tube feeding supplies as well as supplementing with Ensure in the meantime as I anticipate her esophagitis will manifest starting next week. She agreed to this. I also will prescribe some low-dose liquid oxycodone for her abdominal and esophageal pain. ERMELINDA STANFORD MD August 15, 2020 12:12
[~2020-08-16 11:28] MED LIST changes: -ACETAMINOPHEN 325 MG TAB As Ordered ONE; -ACETAMINOPHEN TAB 650MG DOSE (2X325MG) PO ONE; -GLUCAGON INJ 1MG VIAL As Ordered ONE; -ISOVUE-300 61% 50ML VIAL As Ordered ONE; -LIDOCAINE 1% MDV 20ML VIAL As Ordered ONE; -LIDOCAINE 2% JELLY 5ML TUBE As Ordered ONE; -MIDAZOLAM INJ 2MG/2ML VIAL (J2250 PER 1MG) As Ordered ONE; -PERCOCET 5MG/325MG TAB PO PRN; -ceFAZolin 2 GM/D5W 50 ML IV BAG (J0690 PER 500MG) As Ordered ONE; -diphenhydrAMINE 50MG/ML VIAL (J1200) As Ordered ONE; -fentaNYL 100 MCG/2 ML INJECTION (J3010) As Ordered ONE
== END 2020-08-19 ==
LOC: M ONCR 11:28
PROVIDERS: ATTEND General Practice
DX: C15.9 Malignant neoplasm of esophagus, unspecified (principal); Z93.1 Gastrostomy status

== ENCOUNTER 2020-09-13 11:23 | Outpatient (RCR) | payer BC ==
[~2020-09-13 11:23] MED LIST changes: +MAGICMW PO
== END 2020-09-18 ==
LOC: M ONCR 11:23
PROVIDERS: ATTEND General Practice
DX: C15.9 Malignant neoplasm of esophagus, unspecified (principal); R13.10 Dysphagia, unspecified

== ENCOUNTER → 2020-09-26 | Outpatient (CLI) | payer BC ==
--- NOTE | 2020-09-26 12:03 | RADENCPD ---
Date/Time of Encounter Date of Encounter: Sep 26, 2020 Time of Encounter: 11:58 Encounter Ashley came in for a brief follow up today to assess weight and symptoms s/p completion of chemoradiation on 09/13/20. She is doing most per PEG, some soft PO intake. Some ongoing pain with swallowing but lessening in time. Taking oxycodone only at night. Having regular BMs. She is doing well with respect to activity. Her fatigue is improving. She has no skin concerns. On exam her weight is up to 132 lbs from 130 as of final tx. The left supraclavicular node remains small and quite hard, now <0.7cm in size. Her PEG site has a small amount of drainage around the flange. Overall her weight is stable, and she is improving form her acute treatment related side effects. I encouraged her to continue to try and advance diet as able. The inflammation in the esophagus should subside over the next month. Her PEG tube will remain in place until she is able to demonstrate all PO intake and stable weight. She understands this. She has no medication concerns or refill needs today. I can see her as needed until the PET-CT in November. ERMELINDA STANFORD MD Sep 26, 2020 12:03
== END ==
LOC: M ONCR 11:25
PROVIDERS: ATTEND General Practice
DX: C15.9 Malignant neoplasm of esophagus, unspecified (principal); Z92.3 Personal history of irradiation

== ENCOUNTER → 2020-11-05 | Outpatient (POV) | payer BC ==
[~2020-11-05] VITALS: Ht 152.4 cm; Wt 60.0 kg
[2020-11-05 11:15] VITALS: BP 123/78
--- NOTE | 2020-11-07 10:28 | IRPN ---
[facility] IR Progress Note IR Progress Note DATE: Nov 05, 2020 FOLLOW-UP: Patient had G-tube placed in July. Patient has completed radiation therapy. Patient is now eating and drinking by mouth with no issues. Patient is not using her G-tube. Patient would like her G-tube removed. ON EXAMINATION: Abdomen soft nontender. Skin around the PEG tube appears healthy. No cellulitis. The balloon was deflated and the catheter was removed in its entirety. A sterile dressing was applied to the site. IMPRESSION: Patient with a G-tube placed in July, now eating and drinking by mouth with no issues. No longer using the G-tube. Patient desired for the G-tube to be removed. Tract is now mature and the G-tube has been removed in its entirety today. The tract will heal up within several weeks. Continue dressing changes as required, oozing at the site is expected for some weeks. Keep site covered and dry until healed. Thank you for this referral. Cc Dr. Duarte Allergies Coded Allergies: No Known Allergies (Unverified , 05/24/20) VS,Fishbone, I+O VS, Fishbone, I+O Vital Signs Date Time Temp Pulse Resp B/P (MAP) Pulse Ox O2 Delivery O2 Flow Rate FiO2 11/05/20 11:15 98.0 104 20 123/78 (93) 100 Room Air SEA ALVAREZ MD Nov 07, 2020 10:28
== END ==
LOC: M IRPOV 11:07
PROVIDERS: ATTEND Radiology Diagnostic Radiology
DX: Z43.1 Encounter for attention to gastrostomy (principal)

== ENCOUNTER → 2020-11-18 | Outpatient (CLI) | payer BC ==
--- NOTE | 2020-11-19 08:57 | REP ---
INDICATION: RESTAGING ESOPHAGEAL CANCER C15.8. 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 Post chemotherapy and radiation therapy. COMPARISON: Comparison PET-CT study July 16, 2020. Comparison CT study of the chest June 05, 2020. TECHNIQUE: Fifty-seven minutes following the intravenous injection of a 8.61 mCi dose of F-18 FDG, three-dimensional PET scintigraphy is acquired from the skull base to the proximal thighs. Triplanar noncontrast CT scanning is acquired through the same anatomic range for attenuation correction, and image registration with scan parameters optimized to minimize radiation exposure to the patient. PET scintigraphy and CT datasets were fused and displayed on a workstation with multiplanar and projection display capability. FINDINGS: In the interval since the prior study from July 16, 2020, there has been considerable improvement. The primary esophageal mass has decreased in size significantly. There is some residual hypermetabolic uptake at the level of the subcarinal esophagus, 6.18. The aortic 0 pulmonary window region of the mediastinum contains a 1 cm lymph node with residual hypermetabolic uptake, maximum SUV value 3.55. There is also some early post radiation fibrosis activity in the paramediastinal lungs vaz along the right upper lobe and just superior to the aortic arch. Today's PET-CT study shows no upper abdominal tan activity. The previously noted supraclavicular tan activity is no longer apparent. No other abnormal hypermetabolic uptake is seen. IMPRESSION: Significant improvement. There is some residual hypermetabolic uptake at the primary site in the middle 3rd of the esophagus and in 1 small AP window region mediastinal lymph node. Early post radiation changes are seen in the lungs <Electronically signed by Colin Dunn > 11/19/20 [id number]
== END ==
LOC: M PLARAD 12:27
PROVIDERS: ATTEND General Practice
DX: C15.8 Malignant neoplasm of overlapping sites of esophagus (principal)
CPT/HCPCS: 78815; A9552

== ENCOUNTER → 2020-11-20 | Outpatient (CLI) | payer BC ==
--- NOTE | 2020-11-20 11:06 | RADONC ---
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 She was deemed inoperable and underwent chemoradiation 50.4 Gy in 28 fractions with carbo/taxol completed 09/13/20. She is seen today to review recent PET-CT and survivorship care. Diagnosis/Treatment History Oncologic History Presented in 2020 with reflux and 20 lb weight loss. She underwent EGD on 06/03/20 and was found to have a large mass @ 27 cm, pathology showed SCC. PET on 07/16/20 showed left supraclavicular fossa and upper abdominal adenopathy as well as the large intensely hypermetabolic primary mass. She underwent surgical evaluation @ [facility] and was deemed inoperable. PEG tube was placed and she underwent CROSS paradigm chemoradiation 50.4 Gy in 28 fractions with weekly carbo/taxol from 07/31/20-09/13/20. She was PEG dependent by the end of her course, but recovered relatively quickly and so PEG tube was removed on 11/07/20. Recent data: 11/19/20 PET-CT FINDINGS: In the interval since the prior study from July 16, 2020, there has been considerable improvement. The primary esophageal mass has decreased in size significantly. There is some residual hypermetabolic uptake at the level of the subcarinal esophagus, 6.18. The aortic 0 pulmonary window region of the mediastinum contains a 1 cm lymph node with residual hypermetabolic uptake, maximum SUV value 3.55. There is also some early post radiation fibrosis activity in the paramediastinal lungs vaz along the right upper lobe and just superior to the aortic arch. Today's PET-CT study shows no upper abdominal tan activity. The previously noted supraclavicular tan activity is no longer apparent. No other abnormal hypermetabolic uptake is seen. IMPRESSION: Significant improvement. There is some residual hypermetabolic uptake at the primary site in the middle 3rd of the esophagus and in 1 small AP window region mediastinal lymph node. Early post radiation changes are seen in the lungs Survivorship Test Due Next Last result Notes TSH, T4* 6m post-tx, then q1y Feb 2021 Carotid US* q10 y post-tx 2030 Smoking cessation Assess annually if applicable Has quit as of 07/2020 Chest imaging As indicated, indefinite CT surveillance Feb 2021 PET-CT with TN/CR Mammograms Min q1y, in eligible female patients 2021 Echocardiogram q10y post treatment if mediastinum treated 2030 PFTs As indicated N/A CBC,CMP, Lipids q1y Feb 2021 Interval History Ashley feels well. Has been eating everything with only mild residual dysphagia, weight is increasing slowly. She has some back pain, has not regained full exercise tolerance, gets winded easily. Wants to go back to work starting tomorrow. Current Therapy Surveillance Stage Mid-esophageal SCC [id number] Stage III Social History: Former smoker 30+ pack year Does not drink Allergies / Meds Allergies: Coded Allergies: No Known Allergies (Unverified , 05/24/20) Home Meds Active Scripts Oxycodone HCl (Oxycodone HCl) 5 Mg/5 Ml Solution, 5 ML PO Q4HP PRN for Pain MDD 30 Milliliter(s) for 7 Days, #210 ML Prov:ERMELINDA STANFORD MD 09/11/20 Magic Mouthwash (First-Mouthwash Blm) 1 Ea Susp, 10 ML PO QID PRN for ESOPHAGITIS, #240 ML 5 Refills (Diphenhydramine/maalox/lidocaine 1:1:1) May compound if kit unavailable/not covered by insurance Prov:ERMELINDA STANFORD MD 09/02/20 Prochlorperazine Maleate (Prochlorperazine Maleate) 10 Mg Tablet, 10 MG PO Q8H PRN for NAUSEA OR VOMITING, #30 TAB 3 Refills Prov:RYLEE LAND MD 06/21/20 Ondansetron HCl (Ondansetron HCl) 8 Mg Tablet, 8 MG PO Q8H PRN for NAUSEA OR VO MITING, #30 TAB 3 Refills Prov:RYLEE LAND MD 06/21/20 Reported Medications Acetaminophen (Acetaminophen) 500 Mg Tablet, 1000 MG PO BID, TAB 05/24/20 Lisinopril (Lisinopril) 5 Mg Tablet, 5 MG PO DAILY, TAB 05/24/20 Meloxicam (Meloxicam) 15 Mg Tab, 15 MG PO PRN 8/3/18 Review of Systems Review of Systems Constitutional: Reports: Fatigue; Denies: Weight Loss Eyes: Denies: Pain HEENT: Denies: Head Aches Skin: Denies: Rash Pulmonary: Reports: Dyspnea; Denies: Cough, Pleuritic Chest Pain Cardiovascular: Denies: Chest Pain, Edema Gastrointestinal: Denies: Nausea, Abdominal Pain Hematologic: Denies: Bruising, Bleeding Excessively Endocrine: Denies: Cold Intolerance Musculoskeletal: Reports: Back pain; Denies: Neck pain Neurological: Denies: Weakness, Numbness Psych: Reports: Mood Normal Physical Examination Vital Signs Wt 133 lbs T 96.4 P 94 RR 18 BP 121/79 O2 97% Pain 0 Fatigue 0 General Exam: Alert, Cooperative, No Acute Distress Eye Exam: PERRLA, EOMI ENT EXAM: Atraumatic Neck Exam: Supple; Negative: Lymphadenopathy (No cervical adenopathy, left supraclavicular fossa with firm pea sized tan remnant ) Chest Exam: Clear to auscultation, Normal air movement; Negative: Wheezing Heart Exam: Rate Normal, Regular Rhythm Abdomen Exam: Normal bowel sounds, Soft, Other (Healing mid-abdominal PEG site, CDI); Negative: Tenderness Extremity Exam: Negative: Edema Skin Exam: Nl turgor and temperature; Negative: Rash Neuro Exam: Normal Gait, Normal Speech, Cranial Nerves 3-12 NL Psych Exam: Mental status NL Diagnostic and Laboratory Diagnostic Review Radiologic images, relevant labs and pathology reports were personally reviewed and discussed with Ms. Green. Assessment and Plan Impression Assessment Ms. 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 She was deemed inoperable and underwent chemoradiation 50.4 Gy in 28 fractions with carbo/taxol completed 09/13/20. She is seen today to review recent PET-CT and survivorship care. She has an excellent initial response on PET-CT. I explained that this scan and the significant improvement in her symptoms are reassuring that she is in remission. I do not see any value to EGD at this time in the absence of s ymptoms. We discussed that while her progress and imaging are reassuring, that for esophageal cancers remission tends to be impermanent, thus we need to continue surveillance. As the neck is easily examined, I will not image this directly. I instead will obtain CT chest abdomen pelvis in 3 months and if these studies show no progression, per NCCN guidelines we can follow clinically and image only in the presence of symptoms suggestive of progression. She agreed to this. I will also check TFTs in 3 months time as she received supraclavicular RT. Performance Status ECOG 1 Plan Follow up in 3 months with CTs TFTs at next visit Ms. Green was encouraged to call with questions or concerns in the interim period. Billing Statement Total time of [33] minutes was spent preparing for the visit [2], obtaining HPI [7], examining the patient [5], reviewing diagnostic tests [5], discussing management options [5], coordinating care [2], and writing this note [7]. ERMELINDA STANFORD MD Nov 20, 2020 11:06
== END ==
LOC: M ONCR 09:53
PROVIDERS: ATTEND General Practice
DX: C15.9 Malignant neoplasm of esophagus, unspecified (principal); Z79.899 Other long term (current) drug therapy; Z87.891 Personal history of nicotine dependence; Z92.21 Personal history of antineoplastic chemotherapy; Z92.3 Personal history of irradiation

== ENCOUNTER → 2021-01-09 | Outpatient (CLI) | payer BC ==
[~2021-01-09] MED LIST changes: +OMEP-221
--- NOTE | 2021-01-09 12:58 | REPMRS ---
Patient History The patient states she had a clinical breast exam on 01-09-2021. Patient is postmenopausal, had previous chest radiation therapy at age 60, has history of other cancer at age 60, and had previous chemotherapy at age 60. No known family history of cancer. No Hormone Replacement Therapy Patient states no breast complaints today. Patient has signed MRS History Sheet. Pt has a port in her upper right chest area. Digital Woman Screen Mammo: January 09, 2021 - Exam #: [id number] Bilateral CC and MLO view(s) were taken. Technologist: Simin Simmons, Insolvency Practitioner Prior study comparison: December 11, 2019, bilateral digital woman screen mammo performed at [facility]. December 07, 2018, bilateral digital woman screen mammo performed at [facility]. FINDINGS: There are scattered fibroglandular densities. Screening. Digital screening (2D) mammography was performed bilaterally in the CC and MLO projections. Additionally, breast tomosynthesis (3D mammography) was performed bilaterally in the CC and MLO projections. Todays exam was compared to the prior exam/exams. By history, the patient has no complaints of a palpable breast abnormality or other significant breast complaints. The breasts are unchanged in size and shape. There are no annie-soft tissue densities or spiculated masses. There is no internal architectural distortion. Once again, stable benign appearing calcifications are seen.There are no suspicious annie-calcific clusters. Skin thickening or nipple retraction is not present. IMPRESSION: BI-RADS Category 2- Benign Findings. There is no evidence of malignant alteration of the breasts. Followup examination recommended in one year. The Volpara volumetric breast density category is B, there are scattered areas of fibroglandular densities. This mammogram was read with the assistance of [employer],an FDA approved computer aided detection system for mammography. The lifetime Tyrer-Cuzick score is 5.6 % Negative x-ray reports should not delay surgical consultation if a dominant or clinically suspicious mass is present. Not all breast cancers can be identified by mammography. Therefore, we recommend that you continue to perform regular breast self-examination and physical examination and then promptly contact your physician of any concerns or changes. Adenosis and dense breasts may obscure an underlying neoplasm. Assessment: BI-RADS/ACR category 2 mammogram. Benign Findings. Recommendation Routine screening mammogram of both breasts in 1 year. Electronically Signed By: Brent Rubio DO 01/09/21 [id number]
== END ==
LOC: M WHC 10:45
PROVIDERS: ATTEND Nurse Practitioner Women's Health
DX: Z12.31 Encounter for screening mammogram for malignant neoplasm of breast (principal); Z78.0 Asymptomatic menopausal state; Z92.3 Personal history of irradiation; Z85.89 Personal history of malignant neoplasm of other organs and systems; Z92.21 Personal history of antineoplastic chemotherapy; R92.1 Mammographic calcification found on diagnostic imaging of breast

== ENCOUNTER → 2021-01-09 | Outpatient (REF) | payer BC | LOC: M SFHCWAGY 13:17 | PROVIDERS: ATTEND Nurse Practitioner Women's Health | DX: Z12.4 Encounter for screening for malignant neoplasm of cervix (principal) | CPT/HCPCS: 87624; G0123 ==

== ENCOUNTER → 2021-02-12 | Outpatient (CLI) | payer BC ==
[~2021-02-12] MED LIST changes: +GASTROGRAFIN SOLUTION 30ML (Q9963) As Ordered ONE; +ISOVUE-370 76% 100ML VIAL As Ordered ONE
--- NOTE | 2021-02-12 13:21 | REP ---
INDICATION: ESO CA ,STAGING. COMPARISON: 06/05/2020 TECHNIQUE: Standard helical technique after the intravenous administration of 100 cc Isovue 370. Oral bowel preparatory contrast was also administered prior to the exam. FINDINGS: The liver, gallbladder, spleen, pancreas, adrenal glands, and kidneys are within normal limits. The abdominal aorta and para-aortic regions are unchanged. No adenopathy has developed. There is no evidence of lymphadenopathy in the gastrohepatic ligament or brendan hepatis. There is no Daylin caval tan enlargement. The bowel loops and the mesenteries are essentially unchanged. No mass or adenopathy has developed. There is no free fluid or free air. Bone window technique throughout the exam shows no significant change in appearance of the osseous structures. There is no evidence of a destructive osseous lesion. IMPRESSION: There is no evidence of acute disease. Findings as described above. <Electronically signed by Brent Rubio > 02/12/21 [id number]
--- NOTE | 2021-02-12 13:28 | REP ---
INDICATION: ESO CA ,STAGING COMPARISON: 06/05/2020 TECHNIQUE: Standard helical technique after the intravenous administration of 100 cc Isovue 370 FINDINGS: There is no evidence of mediastinal or hilar adenopathy. There is evidence of circumferential thickening of the [place] of the esophagus, however, the masslike density seen previously is not identifiable. There are no pleural or pericardial effusions. There is anterior pericardial thickening. The imaged osseous structures are stable. Evaluation of the lung vaz shows no new abnormal nodules, masses, or opacities. IMPRESSION: Circumferential thickening of the [place] of the esophagus as described above. CT cannot effectively evaluate the esophagus. If tumor recurrence is of clinical concern EGD should be considered if clinically relevant. <Electronically signed by Brent Rubio > 02/12/21 [id number]
== END ==
LOC: M RAD 11:09
PROVIDERS: ATTEND General Practice
DX: C15.9 Malignant neoplasm of esophagus, unspecified (principal)
CPT/HCPCS: 71260; 74177; Q9963; Q9967

== ENCOUNTER → 2021-02-21 | Outpatient (CLI) | payer BC ==
[~2021-02-21] MED LIST changes: -GASTROGRAFIN SOLUTION 30ML (Q9963) As Ordered ONE; -ISOVUE-370 76% 100ML VIAL As Ordered ONE
--- NOTE | 2021-02-21 10:38 | RADONC ---
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 She was deemed inoperable and underwent chemoradiation 50.4 Gy in 28 fractions with carbo/taxol completed 09/13/20. Diagnosis/Treatment History Oncologic History Presented in 2020 with reflux and 20 lb weight loss. She underwent EGD on 06/03/20 and was found to have a large mass @ 27 cm, pathology showed SCC. PET on 07/16/20 showed left supraclavicular fossa and upper abdominal adenopathy as well as the large intensely hypermetabolic primary mass. She underwent surgical evaluation @ [facility] and was deemed inoperable. PEG tube was placed and she underwent CROSS paradigm chemoradiation 50.4 Gy in 28 fractions with weekly carbo/taxol from 07/31/20-09/13/20. She was PEG dependent by the end of her course, but recovered relatively quickly and so PEG tube was removed on 11/07/20. 11/19/20 PET-CT with significant improvement, only mild residual uptake at the mid-esophageal primary site. Nodes resolved. Recent data: 02/12/21 CT chest FINDINGS: There is no evidence of mediastinal or hilar adenopathy. There is evidence of circumferential thickening of the [place] of the esophagus, however, the masslike density seen previously is not identifiable. There are no pleural or pericardial effusions. There is anterior pericardial thickening. The imaged osseous structures are stable. 02/12/21 CT abdomen pelvis Negative Survivorship: Test Due Next Last result Notes TSH, T4* 6m post-tx, then q1y Today Carotid US* q10 y post-tx 2030 Smoking cessation Assess annually if applicable Has quit as of 07/2020 Chest imaging As indicated, indefinite CT surveillance March 2021 PET? PET-CT with WI/CR, 02/12/21 CTs stable Mammograms Min q1y, in eligible female patients 2021 Echocardiogram q10y post treatment if mediastinum treated 2030 PFTs As indicated N/A CBC,CMP, Lipids q1y 2021 Interval History Ashley reports recrudescent dysphagia, worsening over the past 2 months. Associated with mid chest pain as well as some RLQ abdominal pain. Weight is stable. Still working. Still taking PO liquids, sweets. Unable to eat bread or meat. Current Therapy Surveillance Stage Mid-esophageal SCC [id number] Stage III Social History: Former smoker 30+ pack year Does not drink Allergies / Meds Allergies: Coded Allergies: No Known Allergies (Unverified , 05/24/20) Home Meds Active Scripts Oxycodone HCl (Oxycodone HCl) 5 Mg/5 Ml Solution, 5 ML PO Q4HP PRN for Pain MDD 30 Milliliter(s) for 7 Days, #210 ML Prov:ERMELINDA STANFORD MD 09/11/20 Magic Mouthwash (First-Mouthwash Blm) 1 Ea Susp, 10 ML PO QID PRN for ESOPHAGITIS, #240 ML 5 Refills (Diphenhydramine/maalox/lidocaine 1:1:1) May compound if kit unavailable/not covered by insurance Prov:ERMELINDA STANFORD MD 09/02/20 Prochlorperazine Maleate (Prochlorperazine Maleate) 10 Mg Tablet, 10 MG PO Q8H PRN for NAUSEA OR VOMITING, #30 TAB 3 Refills Prov:RYLEE DUARTE MD 06/21/20 Ondansetron HCl (Ondansetron HCl) 8 Mg Tablet, 8 MG PO Q8H PRN for NAUSEA OR VOMITING, #30 TAB 3 Refills Prov:RYLEE DUARTE MD 06/21/20 Reported Medications Omeprazole (Omeprazole) 40 Mg Capsule. 12/30/20 Acetaminophen (Acetaminophen) 500 Mg Tablet, 1000 MG PO BID, TAB 05/24/20 Lisinopril (Lisinopril) 5 Mg Tablet, 5 MG PO DAILY, TAB 05/24/20 Meloxicam (Meloxicam) 15 Mg Tab, 15 MG PO PRN 10/22/17 Review of Systems Review of Systems Constitutional: Denies: Fatigue, Weight Loss HEENT: Denies: Head Aches Pulmonary: Denies: Cough, Pleuritic Chest Pain Cardiovascular: Reports: Chest Pain Gastrointestinal: Reports: Abdominal Pain; Denies: Nausea, Vomiting Hematologic: Denies: Enlarged Lymph Nodes Endocrine: Denies: Cold Intolerance Musculoskeletal: Reports: Back pain, Midthoracic pain Neurological: Denies: Weakness, Numbness Psych: Reports: Mood Normal Physical Examination Vital Signs Ht 65" 132.4 lbs BMI 22 T 98 P 83 RR 18 BP 106/71 O2 98% Pain 2 Fatigue 0 General Exam: Alert, Cooperative, No Acute Distress Eye Exam: PERRLA, EOMI ENT EXAM: Atraumatic Neck Exam: Supple; Negative: Lymphadenopathy (Left supraclavicular fossa with small node, which is stable in size compared to prior exams) Chest Exam: Clear to auscultation, Normal air movement Heart Exam: Rate Normal, Regular Rhythm Abdomen Exam: Soft; Negative: Tenderness Extremity Exam: Negative: Edema Skin Exam: Nl turgor and temperature Neuro Exam: Normal Gait, Normal Speech, Cranial Nerves 3-12 NL Psych Exam: Mental status NL Diagnostic and Laboratory Diagnostic Review Radiologic images, relevant labs and pathology reports were personally reviewed and discussed with Ms. Green. Assessment and Plan Impression Assessment Ms. 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 She was deemed inoperable and underwent chemoradiation 50.4 Gy in 28 fractions with carbo/taxol completed 09/13/20. Her CT scans are stable. However I am very concerned about her recurrent dysphagia and pain. My exam today does not show recurrence in the left supraclav where she previously had a large metastatic node. I proposed that she undergo timely EGD with dilation and biopsy with Dr. Estrada. I will facilitate this. This is the most effective means to ensure remission and to mitigate the stenosis she is experiencing. Dr. Duarte has discussed repeating PET-CT in March. This is reasonable, but I think the EGD should come first to address her dysphagia and acquire tissue. I will also check her TFTs today. She can see me in 1 month. Performance Status ECOG 1 Plan Refer for EGD dilation and biopsies with Dr. Estrada TSH, free T4 check today Follow up in 1 month Ms. Green was encouraged to call with questions or concerns in the interim period. Billing Statement Total time of [37] minutes was spent preparing for the visit [2], obtaining HPI [6], examining the patient [4], reviewing diagnostic tests [6], discussing management options [9], coordinating care [3], and writing this note [7]. ERMELINDA STANFORD MD Feb 21, 2021 10:38
[2021-02-21 11:18] LABS: FREE T4 1.07 NG/DL (0.76-1.46); THYROID STIMULATING HORMONE 1.46 uIU/ML (0.358-3.740)
== END ==
LOC: M ONCR 09:38
PROVIDERS: ATTEND General Practice
DX: C15.9 Malignant neoplasm of esophagus, unspecified (principal); R13.10 Dysphagia, unspecified; R10.31 Right lower quadrant pain; Z92.3 Personal history of irradiation; Z92.21 Personal history of antineoplastic chemotherapy; Z87.891 Personal history of nicotine dependence; Z79.891 Long term (current) use of opiate analgesic; Z79.899 Other long term (current) drug therapy

== ENCOUNTER → 2021-03-26 | Outpatient (CLI) | payer BC ==
[~2021-03-26] MED LIST changes: +ALEN35TA56 PO; -OMEP-221; +OMEP-221 PO; +THERTAB52 PO
== END ==
LOC: M LABSMTC 11:07
PROVIDERS: ATTEND Anesthesiology
DX: Z01.812 Encounter for preprocedural laboratory examination (principal); Z20.822 Contact with and (suspected) exposure to COVID-19

== ENCOUNTER → 2021-04-14 | Outpatient (CLI) | payer BC ==
[~2021-04-14] MED LIST changes: -LISI-898 PO; +LISI5TAB11 PO; -OMEP-221 PO; +OMEP40CA5 PO; +ONDA-84 PO; -ONDA8TAB10 PO; -PROC10TA4 PO; +PROC10TA5 PO
== END ==
LOC: M PLARAD 09:38
PROVIDERS: ATTEND Specialist
DX: C15.8 Malignant neoplasm of overlapping sites of esophagus (principal); R93.5 Abnormal findings on diagnostic imaging of other abdominal regions, including retroperitoneum
CPT/HCPCS: 78815; A9552

== ENCOUNTER → 2021-04-15 | Outpatient (CLI) | payer BC | LOC: M ONCR 09:54 | PROVIDERS: ATTEND General Practice | DX: C15.9 Malignant neoplasm of esophagus, unspecified (principal); Z92.3 Personal history of irradiation; Z92.21 Personal history of antineoplastic chemotherapy; Z87.891 Personal history of nicotine dependence; Z79.899 Other long term (current) drug therapy ==

== ENCOUNTER → 2021-07-10 | Outpatient (CLI) | payer BC ==
[~2021-07-10] MED LIST changes: +SUCR1SS PO
== END ==
LOC: M ONCR 09:29
PROVIDERS: ATTEND Radiology Radiation Oncology
DX: C15.9 Malignant neoplasm of esophagus, unspecified (principal); Z92.21 Personal history of antineoplastic chemotherapy; Z92.25 Personal history of immunosuppression therapy; Z92.3 Personal history of irradiation

== ENCOUNTER → 2021-08-04 | Outpatient (CLI) | payer BC ==
[~2021-08-04] MED LIST changes: +NYST50SS
== END ==
LOC: M PLARAD 11:54
PROVIDERS: ATTEND Internal Medicine Hematology & Oncology
DX: C15.8 Malignant neoplasm of overlapping sites of esophagus (principal)
CPT/HCPCS: 78815; A9552

== ENCOUNTER → 2021-08-14 | Outpatient (CLI) | payer BC | LOC: M CARPUL 12:07 | PROVIDERS: ATTEND Internal Medicine Hematology & Oncology | DX: C90.00 Multiple myeloma not having achieved remission (principal); I31.3 Pericardial effusion (noninflammatory) ==

== ENCOUNTER → 2021-11-25 | Outpatient (CLI) | payer BC ==
[~2021-11-25] VITALS: Ht 165.1 cm; Wt 50.9 kg
[~2021-11-25] MED LIST changes: +GABA-1171 PO; +MEDICAL MARIJUANA PO; +MELO15TA28
[2021-11-25 11:14] VITALS: BP 116/80
== END ==
LOC: M PAL 11:00
PROVIDERS: ATTEND Nurse Practitioner Adult Health
DX: C15.9 Malignant neoplasm of esophagus, unspecified (principal); Z23 Encounter for immunization; Z92.21 Personal history of antineoplastic chemotherapy; I10 Essential (primary) hypertension; J44.9 Chronic obstructive pulmonary disease, unspecified; Z98.51 Tubal ligation status; Z80.1 Family history of malignant neoplasm of trachea, bronchus and lung; G89.3 Neoplasm related pain (acute) (chronic); Z79.891 Long term (current) use of opiate analgesic; Z79.899 Other long term (current) drug therapy

== ENCOUNTER → 2022-01-05 | Outpatient (CLI) | payer BC ==
[~2022-01-05] MED LIST changes: +OXYC-403 PO
== END ==
LOC: M PLARAD 08:54
PROVIDERS: ATTEND Specialist
DX: C15.8 Malignant neoplasm of overlapping sites of esophagus (principal)
CPT/HCPCS: 78815; A9552

== ENCOUNTER → 2022-01-06 | Outpatient (CLI) | payer BC | LOC: M PAL 13:46 | PROVIDERS: ATTEND Nurse Practitioner Adult Health | DX: C15.4 Malignant neoplasm of middle third of esophagus (principal); C78.89 Secondary malignant neoplasm of other digestive organs; G89.3 Neoplasm related pain (acute) (chronic); G57.93 Unspecified mononeuropathy of bilateral lower limbs; I10 Essential (primary) hypertension; J44.9 Chronic obstructive pulmonary disease, unspecified; D69.6 Thrombocytopenia, unspecified; M25.511 Pain in right shoulder; M25.512 Pain in left shoulder; M54.9 Dorsalgia, unspecified; R10.9 Unspecified abdominal pain; R20.0 Anesthesia of skin; R63.4 Abnormal weight loss; R13.10 Dysphagia, unspecified; Z51.5 Encounter for palliative care; Z66 Do not resuscitate; Z80.1 Family history of malignant neoplasm of trachea, bronchus and lung; Z92.3 Personal history of irradiation; Z92.21 Personal history of antineoplastic chemotherapy; Z79.899 Other long term (current) drug therapy; Z79.891 Long term (current) use of opiate analgesic ==

== ENCOUNTER → 2022-01-12 | Outpatient (CLI) | payer BC | LOC: M WHC 12:59 | PROVIDERS: ATTEND Family Medicine | DX: Z12.31 Encounter for screening mammogram for malignant neoplasm of breast (principal) ==

== ENCOUNTER → 2022-01-13 | Outpatient (CLI) | payer BC | LOC: M ONCR 14:58 | PROVIDERS: ATTEND General Practice | DX: C15.4 Malignant neoplasm of middle third of esophagus (principal); Z79.1 Long term (current) use of non-steroidal anti-inflammatories (NSAID); Z79.899 Other long term (current) drug therapy; Z87.891 Personal history of nicotine dependence; Z92.21 Personal history of antineoplastic chemotherapy; Z92.3 Personal history of irradiation ==

== ENCOUNTER → 2022-01-19 | Outpatient (RCR) | payer BC | LOC: M ONCR 08:14 | PROVIDERS: ATTEND General Practice | DX: C15.9 Malignant neoplasm of esophagus, unspecified (principal) ==

== ENCOUNTER 2022-01-30 12:56 | Outpatient (RCR) | payer BC ==
[2022-02-20] MEDS ORDERED: OXYC1SOL3 PO (11:06)
== END 2022-02-18 ==
LOC: M ONCR 12:56
PROVIDERS: ATTEND General Practice
DX: C15.9 Malignant neoplasm of esophagus, unspecified (principal)

== ENCOUNTER → 2022-02-03 | Outpatient (CLI) | payer BC ==
[~2022-02-03] VITALS: Ht 167.6 cm; Wt 46.7 kg
[2022-02-03 13:59] VITALS: BP 109/80
== END ==
LOC: M PAL 13:32
PROVIDERS: ATTEND Nurse Practitioner Adult Health
DX: C15.4 Malignant neoplasm of middle third of esophagus (principal); I10 Essential (primary) hypertension; J44.9 Chronic obstructive pulmonary disease, unspecified; G62.9 Polyneuropathy, unspecified; M54.6 Pain in thoracic spine; R63.4 Abnormal weight loss; M25.512 Pain in left shoulder; M25.511 Pain in right shoulder; R13.10 Dysphagia, unspecified; R10.30 Lower abdominal pain, unspecified; Z80.1 Family history of malignant neoplasm of trachea, bronchus and lung; Z92.21 Personal history of antineoplastic chemotherapy; Z92.3 Personal history of irradiation; Z51.5 Encounter for palliative care; Z79.891 Long term (current) use of opiate analgesic; Z79.899 Other long term (current) drug therapy; Z79.890 Hormone replacement therapy

== ENCOUNTER 2022-02-20 11:27 | Inpatient (IN) | payer BC ==
[~2022-02-20] VITALS: Ht 167.6 cm; Wt 52.3 kg
[2022-02-20 13:07] LABS: VENOUS BASE EXCESS -4.2 (-2.0-2.0); VENOUS HCO3 18.2 MEQ/L (23.0-27.0); VENOUS O2 SATURATION 99.9 % (60.0-80.0); VENOUS PARTIAL PRESSURE CO2 26.1 mmHg (38.0-50.0); VENOUS PH 7.461 UNITS (7.330-7.430)
[2022-02-20 13:10] LABS: HEMOGLOBIN 9.3 g/dl (12.0-15.5); MEAN CORPUSCULAR HEMOGLOBIN 32.3 pg (27.0-33.0); MEAN CORPUSCULAR VOLUME 104.2 fl (80.0-96.0); PLATELET COUNT, AUTOMATED 137 10^3/uL (150-450); RED BLOOD COUNT 2.88 10^6/uL (4.00-5.40); WHITE BLOOD COUNT 10.9 10^3/uL (4.0-10.0)
[2022-02-20 13:24] LABS: INR 1.17; PROTHROMBIN TIME 15.1 SECONDS (12.5-14.5)
[2022-02-20 13:25] LABS: PARTIAL THROMBOPLASTIN TIME 37.3 SECONDS (24.8-34.2)
[2022-02-20 13:43] LABS: LYMPHOCYTES 7 % (16-44); MONOCYTES 2 % (0-5); NEUTROPHILS 76 % (28-66)
[2022-02-20 13:44] LABS: HYPOCHROMASIA 2+; PLATELET ESTIMATE DECREASED (NORMAL); TEAR DROP CELLS 1+
[2022-02-20 13:45] LABS: ANISOCYTOSIS 1+; POIKILOCYTOSIS 1+
[2022-02-20] MEDS ORDERED: oxyCODONE 5MG TAB PO ONE (14:35)
[2022-02-20] MEDS ORDERED: PIPERACILLIN/TAZOBACTAM SOD 3.375 GM in D5W MINI-BAG PLUS 50 ML IV ONE (14:45)
[2022-02-20] MEDS: MORPHINE 10MG/0.5ML ORAL CONCENTRATE SOLUTION U/D SL PRN ×2 (15:05→16:26)
[2022-02-20 15:09] LABS: ALBUMIN 1.7 G/DL (3.2-5.2); ALKALINE PHOSPHATASE 277 U/L (46-116); ALT/SGPT < 9 U/L (7.0-40); AST/SGOT 25 U/L (<34); BILIRUBIN,DIRECT 0.5 MG/DL (<0.4); BILIRUBIN,TOTAL 0.7 MG/DL (0.3-1.2); BLOOD UREA NITROGEN 22 MG/DL (9-23); CARBON DIOXIDE LEVEL 20 MMOL/L (20-31); CHLORIDE LEVEL 104 MMOL/L (98-107); CK-MB VALUE MASS < 1.0 NG/ML (<3.6); CPK CREATINE PHOSPHOKINASE 14.99999 U/L (34-145); CREATININE FOR GFR 0.49 MG/DL (0.55-1.30); GLOMERULAR FILTRATION RATE > 60.0 (>45); GLUCOSE, FASTING 87 MG/DL (74-106); POTASSIUM SERUM 3.6 MMOL/L (3.5-5.1); SODIUM LEVEL 142 MMOL/L (136-145); THYROID STIMULATING HORMONE 1.294 uIU/ML (0.55-4.78); TOTAL PROTEIN 5.5 G/DL (5.7-8.2)
[2022-02-20] MEDS ORDERED: NS 1,400 ML in IV 1 EA IV ONE (16:20)
[2022-02-20] MEDS ORDERED: ETOMIDATE INJ 20MG/10ML VIAL IV STA (16:59)
[2022-02-20] MEDS ORDERED: AMIODARONE HCL 150 MG in IV 1 EA IV STA (17:00)
[2022-02-20] MEDS ORDERED: GABA-1171 PO (17:16)
[2022-02-20] MEDS ORDERED: OMEP40CA5 PO (17:40)
[2022-02-20] MEDS ORDERED: med rec comment (17:43)
[2022-02-20] MEDS ORDERED: HOME MED LIST COMPLETE! XX SCH (17:45)
[2022-02-20] MEDS ORDERED: ACETAMINOPHEN TAB 650MG DOSE (2X325MG) PO PRN (18:40)
[2022-02-20] MEDS ORDERED: BISACODYL 10 MG SUPP PR PRN (18:40)
[2022-02-20] MEDS ORDERED: ONDANSETRON 4MG 2ML VIAL IV PRN (18:40)
[2022-02-20] MEDS ORDERED: ATROPINE SULFATE 1% OP SOLN 2 ML BTL SL PRN (18:40)
[2022-02-20] MEDS ORDERED: LORazepam 1 MG TAB PO PRN (18:40)
[2022-02-20] MEDS ORDERED: HYOSCYAMINE SULFATE 0.125 MG SUBL TABLET PO PRN (18:40)
[2022-02-20 19:32] VITALS: BP 97/67
[2022-02-20] MEDS: MORPHINE SULF IN 0.9% NACL 100 MG in IV 1 EA IV SCH ×2 (22:39)
[2022-02-20] MEDS: SCOPOLAMINE 1MG TRANSDERMAL PATCH TOP PRN (22:39)
[2022-02-21] MEDS ORDERED: AMIODARONE 150MG/3ML INJ (J0282) ONE (13:55)
[2022-02-21] MEDS: MORPHINE SULF IN 0.9% NACL 100 MG in IV 1 EA IV SCH ×2 (16:31)
[2022-02-22] MEDS: MORPHINE SULF IN 0.9% NACL 100 MG in IV 1 EA IV SCH ×2 (14:46)
[2022-02-23] MEDS ORDERED: MORPHINE 4 MG/ML 1ML VIAL IV PRN (09:10)
[2022-02-23] MEDS: MORPHINE 10MG/0.5ML ORAL CONCENTRATE SOLUTION U/D SL PRN ×5 (11:06→21:39)
[2022-02-23] MEDS: LORazepam 2 MG TAB PO PRN ×2 (19:21→21:39)
[2022-02-23] MEDS: SCOPOLAMINE 1MG TRANSDERMAL PATCH TOP PRN (21:41)
[2022-02-24] MEDS: MORPHINE 10MG/0.5ML ORAL CONCENTRATE SOLUTION U/D SL PRN ×3 (01:01→06:40)
[2022-02-24] MEDS: LORazepam 2 MG TAB PO PRN (01:33)
== END 2022-02-24 13:34 | disposition expired | DRG 862 ==
LOC: M ED 11:27 → EDBD 11:27 → M ED INP 16:46 → ENRESERV 19:59 → M MSPAV 20:13
PROVIDERS: ADMIT Internal Medicine Nephrology; ATTEND Internal Medicine
PROC: 5A2204Z Restoration of Cardiac Rhythm, Single (ICD-10-PCS; principal; 2022-02-20)
DX: Z51.5 Encounter for palliative care (principal); J96.01 Acute respiratory failure with hypoxia; R57.0 Cardiogenic shock; J18.9 Pneumonia, unspecified organism; C15.9 Malignant neoplasm of esophagus, unspecified; E43 Unspecified severe protein-calorie malnutrition; I48.91 Unspecified atrial fibrillation; G89.3 Neoplasm related pain (acute) (chronic); Z66 Do not resuscitate; Z79.891 Long term (current) use of opiate analgesic; Z79.899 Other long term (current) drug therapy; Z20.822 Contact with and (suspected) exposure to COVID-19; A41.9 Sepsis, unspecified organism; R65.21 Severe sepsis with septic shock; Z92.21 Personal history of antineoplastic chemotherapy; I46.9 Cardiac arrest, cause unspecified